=== PATIENT | female | born 1985 | race Caucasian/White ===

== ENCOUNTER 2018-09-25 01:35 | Day surgery (SDC) | payer MEDICAID ==
[2018-04-15 09:50] VITALS: Ht 154.9 cm; Wt 54.9 kg
[~2018-09-25] VITALS: Ht 154.9 cm; Wt 54.9 kg
[~2018-09-25 01:35] MED LIST: ACE3 PO; ACET-2007 PO; AMOX-362 PO; CIPR-214 PO; CIPR-344 PO; CLAR-1 PO; CLON-329 PO; CLON0.5T66 PO; CRAN250T; ESCI20TA38 PO; FLUO-202 PO; GARL1TAB9 PO; HYDR25CA13 PO; HYDR25CA83 PO; HYDR50CA47 PO; IBU800 PO; IBUP800T37 PO; LEVO-3 PO; LORA-630 PO; MULT-1379 PO; NIC10R INH; NITR-105 PO; NORE0.3522 PO; OMEG1CAP39 PO; OMEP-137 PO; ONDA4TAB PO; ONDA4TAB9 PO; OXYC-865 PO; PANT40TA65 PO; PER PO; PREN-127 PO; PREN-67 PO; PROM-110 PO; SCOP1PAT16; SULF-198 PO; TRAM-420 PO; TRAZ100T31 PO; TRAZ150T8 PO
[2018-09-25] MEDS ORDERED: DEXAMETHASONE SOD PHOS 10MG/ML ONE (10:30)
[2018-09-25] MEDS ORDERED: LIDOCAINE MPF 1% 5 ML VIAL ONE (10:30)
[2018-09-25] MEDS ORDERED: ONDANSETRON 4 MG/2 ML VIAL ONE (10:30)
[2018-09-25] MEDS ORDERED: PROPOFOL EMUL(*) 10MG/ML 20 ML 20 ML ONE (10:30)
[2018-09-25] MEDS ORDERED: fentaNYL CITR 100 MCG/2 ML AMP ONE ×2 (10:30→14:01)
[2018-09-25] MEDS ORDERED: KETAMINE HCL 200 MG/20 ML MDV ONE (10:32)
[2018-09-25] MEDS ORDERED: SUGAMMADEX SOD 200 MG/2 ML SDV ONE (10:34)
[2018-09-25] MEDS ORDERED: LIDOCAINE/SOD BICARB 8.4% SYR ID ONE (11:15)
[2018-09-25] MEDS ORDERED: FAMOTIDINE 20 MG TAB PO ONE (11:15)
[2018-09-25] MEDS ORDERED: MIDAZOLAM 2 MG/2 ML VIAL IVP PRN (11:15)
[2018-09-25] MEDS: NORMOSOL R SOLN(*) 1000 ML BAG 1,000 ML IV PRN ×2 (11:26→14:05)
[2018-09-25 11:53] VITALS: BP 91/62
[2018-09-25 12:07] LABS: PLATELET COUNT, AUTOMATED 215 K/uL (150-450)
[2018-09-25] MEDS ORDERED: ROPIVACAINE 0.2% 20 ML VIAL ONE (12:43)
[2018-09-25] MEDS ORDERED: KETOROLAC 30 MG/ML VIAL ONE (13:28)
[2018-09-25] MEDS ORDERED: LR(*) 1000 ML BAG 1,000 ML IV ONE (13:50)
[2018-09-25] MEDS ORDERED: ACETAMINOPHEN 500 MG TAB PO ONE (13:50)
--- NOTE | 2018-09-25 13:50 | Post Operative Note ---
Operative Note - [facility] Operative Day Date: Sep 25, 2018 Time: 13:49 Physicians Surgeon: Sandra Anesthesia: MICHAELA Diagnosis Pre-Op Diagnosis: sterilization Post-Op Diagnosis: same Procedure Procedure(s): L-scope bilateral salpingectomy Specimen Removed:(Maybe N/A): bilateral tubes Complications: [id number] Fluids Fluids: 1000 ml Estimated Blood Loss: minimal Dictated Date OP Note Dictated: Sep 25, 2018 Time OP Note Dictated: 13:49 Copies to: CIARAN AMAYA MD ; CIARAN AMAYA MD Sep 25, 2018 13:50
--- NOTE | 2018-09-25 13:54 | Short(Outpt) Discharge Summary ---
Discharge Summary Reason for Hosp/Final Diag: (1) Admission for sterilization Hospital Course & Plan: s/p L-scope bilateral salpingectomy Departure Discharge to: Home, Self Care Discharge Instructions Home Meds Reported Medications Scopolamine (Scopolamine) 1 Mg/3 Day Patch.td.3 07/01/18 Vits W-Ca,Fe,Fa(<1MG) ( VITAMINS) 1 Each Tablet, 1 EACH PO DAILY, TAB 04/12/18 Follow up Referrals: PRODUCT MANAGER - In Two Weeks @ [facility] with CIARAN AMAYA MD Diet: Regular Activity: As Tolerated, No Heavy Lifting, No Exertion Copies to: CIARAN AMAYA MD ; CIARAN AMAYA MD Sep 25, 2018 13:54
--- NOTE | 2018-09-25 14:39 | OPERATIVE REPORT 1 ---
EVENT DATE: September 25, 2018 SURGEON: Vinnie Flores MD ANESTHESIOLOGIST: Teto Verdugo MD ANESTHESIA: General endotracheal. PREOPERATIVE DIAGNOSIS Desired sterilization. POSTOPERATIVE DIAGNOSIS Desired sterilization. PROCEDURE PERFORMED Laparoscopic bilateral salpingectomy. ESTIMATED BLOOD LOSS Minimal. FLUIDS Crystalloid 1000 mL IV. PROCEDURE IN DETAIL The patient was brought to the operating room with a working IV. She was placed in the dorsal supine position and placed under general endotracheal anesthesia. She was then moved to the dorsal lithotomy position and prepped and draped in the usual sterile fashion. A weighted speculum was placed in the vaginal. The cervix was grasped on the anterior lip with a single-toothed tenaculum. The uterus was carefully sounded to a depth of 7 cm. The cervix was then dilated in order to accommodate a 6 cm DAYSI uterine manipulator. This was then passed through the cervix into the uterus. The bulb was inflated and secured, and then all instruments were removed from the vagina. The bladder had been drained. Gloves were changed. Legs were brought to the supine position, and we proceeded laparoscopically by infiltrating the umbilicus with 0.2% Naropin. A 5 mm stab incision was made with a scalpel, and a Veress needle was passed through this incision into the abdomen while stabilizing the anterior abdominal wall, performed atraumatically. Negative pressure was confirmed with the insufflation device, and then insufflation proceeded to an intra-abdominal pressure of 20 mmHg. Veress needle was then removed, and a 5 mm bladeless trocar was passed through this incision into the abdomen under direct visualization. Two additional 5 mm ports were placed suprapubic times one and the left lower quadrant times one under direct visualization, all with a similar technique and without incident. The abdomen and pelvis were surveyed. Normal-appearing uterus, tubes, and ovaries, normal right upper quadrant, normal bowel and abdominopelvic contents. A Genicom grasper was used to grasp the right fallopian tube and put on medial stretch, exposing the mesosalpinx. The LigaSure device was then used to cauterize and transect through the mesosalpinx up to the cornual portion of the tube where it attaches to the uterus, and the tube was then amputated. This was taken out through the suprapubic port through the 5 mm trocar. This tube was tagged and sent to Pathology, along with the left tube, which was removed in a similar fashion by grasping and exposing the mesosalpinx with medial traction, dissecting through the mesosalpinx with the LigaSure up to the cornual portion and amputating the tube at that location. Pelvis was then irrigated lightly and suctioned dry. No visible bleeders. Procedure was terminated. Pneumoperitoneum was suctioned out. All instruments were removed, and trocars were removed. Skin incisions were repaired with a 4-0 Monocryl simple subdermal and then covered with skin adhesive. Patient tolerated the procedure well. Sponge, lap, needle, and instrument counts were all correct times three. [facility]
[2018-09-25] MEDS ORDERED: PROMETHAZINE 25 MG/ML 1 ML AMP ONE (14:40)
[2018-09-25 14:45] VITALS: BP 96/58
[2018-09-25 15:00] VITALS: BP 93/52
[2018-09-25] MEDS ORDERED: ACETAMINOPHEN 500 MG TAB ONE (15:15)
[2018-09-25 15:30] VITALS: BP 98/44
[2018-09-25 15:37] VITALS: BP 116/71
[2018-09-25] MEDS ORDERED: IBUPROFEN 800 MG TAB PO SCH (17:00)
== END 2018-09-25 14:45 | disposition home or self-care (01) ==
LOC: OR 01:35
PROVIDERS: ATTEND Obstetrics & Gynecology
DX: Z30.2 Encounter for sterilization (principal); F41.9 Anxiety disorder, unspecified
CPT/HCPCS: 36415; 58661; 84703; 85025; 88302; J1100; J1885; J2001; J2250; J2405; J2550; J2704; J2795; J3010; J3490